=== PATIENT | female | born 1950 | race Caucasian/White ===

== ENCOUNTER 2019-07-16 14:03 | Outpatient (CLI) | payer MEDICARE, OTHER ==
--- NOTE | 2019-07-16 15:07 | BD ---
DEXA BONE DENSITY STUDY: Date: 07/16/19 HISTORY: 69-year-old postmenopausal female for screening for osteoporosis. FINDINGS: Lumbar Spine: BMD (g/cm2) L1 1.059 T-Score: 0.6 L2 1.091 T-Score: 0.6 L3 1.071 T-Score: -0.1 L4 1.263 T-Score: 1.8 L1-L4 1.126 T-Score: 0.7 Femoral Neck: 0.666 T-Score: -1.7 Total Femur: 0.852 T-Score: -0.7 IMPRESSION: Osteopenia. This patient has a 10 year WHO fracture risk for a major osteoporotic fracture of 16% and for a hip fracture of 3.3%. POS: [facility]
== END 2019-07-16 14:04 | disposition home or self-care (01) ==
LOC: BICMAMMO 14:03
PROVIDERS: ATTEND Family Medicine
DX: Z13.820 Encounter for screening for osteoporosis (principal); M85.859 Other specified disorders of bone density and structure, unspecified thigh; Z78.0 Asymptomatic menopausal state
CPT/HCPCS: 77080

== ENCOUNTER 2019-08-27 13:01 | Outpatient (CLI) | payer MEDICARE, OTHER | END 2019-08-27 13:02 | disposition home or self-care (01) | LOC: ULT 13:01 | PROVIDERS: ATTEND Family Medicine | DX: R01.1 Cardiac murmur, unspecified (principal) | CPT/HCPCS: 93306 ==

== ENCOUNTER 2021-01-26 13:29 | Outpatient (CLI) | payer MEDICARE, OTHER | END 2021-01-26 13:30 | disposition home or self-care (01) | LOC: BICRAD 13:29 | PROVIDERS: ATTEND Physician Assistant | DX: R06.02 Shortness of breath (principal); E03.9 Hypothyroidism, unspecified; R68.89 Other general symptoms and signs | CPT/HCPCS: 36415; 71046; 80053; 83880; 84439; 84443; 84481; 85025 ==

== ENCOUNTER 2021-02-25 09:05 | Outpatient (CLI) | payer MEDICARE, OTHER ==
[2021-02-25] MEDS ORDERED: Iopamidol-370 76% 500 ML 1 ML ONE (11:49)
== END 2021-02-25 09:06 | disposition home or self-care (01) ==
LOC: BICCT 09:05
PROVIDERS: ATTEND Internal Medicine
DX: K63.9 Disease of intestine, unspecified (principal); K76.0 Fatty (change of) liver, not elsewhere classified; K57.30 Diverticulosis of large intestine without perforation or abscess without bleeding; C78.01 Secondary malignant neoplasm of right lung; C78.7 Secondary malignant neoplasm of liver and intrahepatic bile duct; R91.8 Other nonspecific abnormal finding of lung field
CPT/HCPCS: 71260; 74177; Q9967

== ENCOUNTER 2021-03-03 14:54 | Outpatient (CLI) | payer MEDICARE, OTHER ==
[2021-03-03 16:08] LABS: Anion Gap 15 mmol/L (10-20); BUN (Urea Nitrogen) 13 mg/dL (9.8-20.1); Calc. Creatinine Clearance 0 mL/min (70-130); Calcium 9.6 mg/dL (7.8-10.44); Carbon Dioxide 25 mmol/L (23-31); Chloride 103 mmol/L (98-107); Glucose 131 mg/dL (83-110); Potassium 4.4 mmol/L (3.5-5.1); Sodium 139 mmol/L (136-145)
[2021-03-03 16:43] LABS: #Basophils 0.1 10x3/uL (0.0-0.2); #Eosinphils 0.2 10x3/uL (0.0-0.5); #Monocytes 0.5 10x3/uL (0.0-1.1); #Neutrophils 5.1 10x3/uL (1.5-8.4); %Basophils 1.3 % (0.0-2.0); %Eosinophils 2.5 % (0.0-6.0); %Lymphocytes 15.9 % (18.0-47.0); %Monocytes 6.7 % (0.0-10.0); %Neutrophils 73.3 % (40.0-75.0); Hemoglobin 8.9 g/dL (12.0-15.5); Mean Corpuscular HGB CONC 29.5 g/dL (32.0-36.0); Mean Corpuscular Hemoglobin 22.7 pg (27.0-33.0); Mean Platelet Volume 9.5 fl (7.4-10.4); Platelet Count 533 10x3/uL (150-450); RBC Distribution Width 15.6 % (11.5-14.5); Red Blood Cell (RBC) Count 3.92 10x6/uL (3.90-5.03); White Blood Cell (WBC) Count 6.9 10x3/uL (3.5-10.5)
[2021-03-03 18:21] LABS: Hypochromia MODERATE=16-30 cells (100X) (0-5/hpf)
[2021-03-03 18:22] LABS: Microcytosis SLIGHT = 6-15 cells (100X) (0-5/hpf)
[2021-03-03 18:23] LABS: Platelet Morphology Comment Appears Increased
[2021-03-04 01:47] LABS: SARS-CoV-2 PCR by NAA Not Detected (NotDetected)
== END 2021-03-03 14:55 | disposition home or self-care (01) ==
LOC: LABBT 14:54
PROVIDERS: ATTEND Specialist
DX: Z01.818 Encounter for other preprocedural examination (principal); C18.2 Malignant neoplasm of ascending colon; Z20.822 Contact with and (suspected) exposure to COVID-19
CPT/HCPCS: 80048; 85025; 93005; U0003; U0005; 87635; 93010

== ENCOUNTER 2021-03-04 10:29 | Day surgery (SDC) | payer MEDICARE, OTHER ==
[2021-03-03 13:15] VITALS: BMI 29.8
[2021-03-04] MEDS ORDERED: Ketorolac Tromethamine 30 MG/ML VIAL ONE (11:22)
[2021-03-04] MEDS ORDERED: Acetaminophen 500 MG TAB ONE (11:22)
[2021-03-04] MEDS ORDERED: EPINEPHrine 1 MG/ML AMP ONE (12:04)
[2021-03-04] MEDS ORDERED: Heparin 10,000 UNITS/ 10 ML VIAL ONE (12:04)
[2021-03-04] MEDS ORDERED: Bupivacaine 0.25% HCL 30 ML VIAL ONE (12:04)
[2021-03-04] MEDS ORDERED: Lidocaine 1% (PF) 30 ML VIAL ONE (12:04)
[2021-03-04] MEDS ORDERED: Midazolam HCl 2 mg/2 ml Vial ONE (12:16)
[2021-03-04] MEDS ORDERED: Propofol 1,000 MG/100 ML VIAL IV ONE (12:16)
[2021-03-04] MEDS ORDERED: Fentanyl 100 MCG/2 ML VIAL ONE (12:16)
[2021-03-04] MEDS ORDERED: Lidocaine 1% PF 5 ML VIAL ONE (13:28)
== END 2021-03-04 15:35 | disposition home or self-care (01) ==
LOC: SDC 10:29
PROVIDERS: ATTEND Specialist
PROC: 0JH60WZ Insertion of Totally Implantable Vascular Access Device into Chest Subcutaneous Tissue and Fascia, Open Approach (ICD-10-PCS; principal; 2021-03-04)
PROC: 02HV33Z Insertion of Infusion Device into Superior Vena Cava, Percutaneous Approach (ICD-10-PCS; 2021-03-04)
DX: C18.2 Malignant neoplasm of ascending colon (principal); C78.01 Secondary malignant neoplasm of right lung; C78.7 Secondary malignant neoplasm of liver and intrahepatic bile duct; D63.0 Anemia in neoplastic disease; E78.5 Hyperlipidemia, unspecified; E03.9 Hypothyroidism, unspecified; Z79.899 Other long term (current) drug therapy; Z88.1 Allergy status to other antibiotic agents; Z88.2 Allergy status to sulfonamides
CPT/HCPCS: 36561; 71045; C1788; J0171; J0690; J1642; J1644; J1885; J2001; J2250; J2704; J3010; S0020

== ENCOUNTER 2021-03-10 07:34 | Outpatient (CLI) | payer MEDICARE, OTHER | END 2021-03-10 07:35 | disposition home or self-care (01) | LOC: PET 07:34 | PROVIDERS: ATTEND Internal Medicine Medical Oncology | DX: C18.9 Malignant neoplasm of colon, unspecified (principal); C78.7 Secondary malignant neoplasm of liver and intrahepatic bile duct; C78.00 Secondary malignant neoplasm of unspecified lung | CPT/HCPCS: 78815; A9552 ==

== ENCOUNTER 2021-09-06 07:32 | Outpatient (CLI) | payer MEDICARE, OTHER | END 2021-09-06 07:33 | disposition home or self-care (01) | LOC: PET 07:32 | PROVIDERS: ATTEND Internal Medicine Medical Oncology | DX: C18.2 Malignant neoplasm of ascending colon (principal) | CPT/HCPCS: 78815; A9552 ==

== ENCOUNTER 2022-02-28 08:00 | Outpatient (CLI) | payer MEDICARE, OTHER | END 2022-02-28 08:01 | disposition home or self-care (01) | LOC: PET 08:00 | PROVIDERS: ATTEND Internal Medicine Medical Oncology | DX: C18.2 Malignant neoplasm of ascending colon (principal); C78.00 Secondary malignant neoplasm of unspecified lung; C78.7 Secondary malignant neoplasm of liver and intrahepatic bile duct | CPT/HCPCS: 78815; A9552 ==

== ENCOUNTER 2022-07-14 08:00 | Outpatient (CLI) | payer MEDICARE, OTHER | END 2022-07-14 08:01 | disposition home or self-care (01) | LOC: PET 08:00 | PROVIDERS: ATTEND Internal Medicine Medical Oncology | DX: C18.2 Malignant neoplasm of ascending colon (principal); D50.8 Other iron deficiency anemias; C78.00 Secondary malignant neoplasm of unspecified lung; C22.9 Malignant neoplasm of liver, not specified as primary or secondary | CPT/HCPCS: 78815; A9552 ==

== ENCOUNTER 2022-12-01 11:00 | Outpatient (CLI) | payer MEDICARE, OTHER | END 2022-12-01 11:01 | disposition home or self-care (01) | LOC: PET 11:00 | PROVIDERS: ATTEND Internal Medicine Medical Oncology | DX: C18.2 Malignant neoplasm of ascending colon (principal); K76.9 Liver disease, unspecified | CPT/HCPCS: 78815; A9552 ==

== ENCOUNTER 2022-12-18 11:38 | Outpatient (CLI) | payer MEDICARE, OTHER ==
[~2022-12-18 11:38] MED LIST: Iopamidol 370 76% 100 ML VIAL ONE
== END 2022-12-18 11:39 | disposition home or self-care (01) ==
LOC: CT 11:38
PROVIDERS: ATTEND Internal Medicine Medical Oncology
DX: C78.7 Secondary malignant neoplasm of liver and intrahepatic bile duct (principal); C78.00 Secondary malignant neoplasm of unspecified lung; C18.2 Malignant neoplasm of ascending colon; N28.9 Disorder of kidney and ureter, unspecified; K76.9 Liver disease, unspecified; D50.8 Other iron deficiency anemias
CPT/HCPCS: 71260; 74178; Q9967

== ENCOUNTER 2023-06-21 12:43 | Outpatient (CLI) | payer MEDICARE, OTHER | END 2023-06-21 12:44 | disposition home or self-care (01) | LOC: BICCT 12:43 | PROVIDERS: ATTEND Internal Medicine Medical Oncology | DX: C18.2 Malignant neoplasm of ascending colon (principal); C22.9 Malignant neoplasm of liver, not specified as primary or secondary; R59.0 Localized enlarged lymph nodes; R91.1 Solitary pulmonary nodule; Z90.49 Acquired absence of other specified parts of digestive tract | CPT/HCPCS: 71260; 74177 ==

== ENCOUNTER 2023-09-12 12:31 | Outpatient (CLI) | payer MEDICARE, OTHER | END 2023-09-12 12:32 | disposition home or self-care (01) | LOC: BICCT 12:31 | PROVIDERS: ATTEND Internal Medicine | DX: C18.2 Malignant neoplasm of ascending colon (principal); C78.00 Secondary malignant neoplasm of unspecified lung; C22.9 Malignant neoplasm of liver, not specified as primary or secondary; K76.0 Fatty (change of) liver, not elsewhere classified; Z90.49 Acquired absence of other specified parts of digestive tract | CPT/HCPCS: 71260; 74177 ==

== ENCOUNTER 2023-12-19 09:27 | Outpatient (CLI) | payer MEDICARE, OTHER | END 2023-12-19 09:28 | disposition home or self-care (01) | LOC: BICCT 09:27 | PROVIDERS: ATTEND Internal Medicine | DX: C18.9 Malignant neoplasm of colon, unspecified (principal); R91.8 Other nonspecific abnormal finding of lung field; K76.9 Liver disease, unspecified | CPT/HCPCS: 71260; 74177 ==

== ENCOUNTER 2024-05-09 08:56 | Outpatient (CLI) | payer MEDICARE, OTHER ==
[2024-05-09] MEDS ORDERED: Iopamidol 370 76% 100 ML VIAL ONE (15:45)
== END 2024-05-09 08:57 | disposition home or self-care (01) ==
LOC: BICCT 08:56
PROVIDERS: ATTEND Internal Medicine
DX: C18.9 Malignant neoplasm of colon, unspecified (principal); K76.9 Liver disease, unspecified; J98.59 Other diseases of mediastinum, not elsewhere classified; Z95.9 Presence of cardiac and vascular implant and graft, unspecified
CPT/HCPCS: 71260; 74177; Q9967

== ENCOUNTER 2024-09-02 08:48 | Outpatient (CLI) | payer MEDICARE, OTHER ==
[2024-09-02] MEDS ORDERED: Iopamidol 370 76% 100 ML VIAL ONE (11:41)
== END 2024-09-02 08:49 | disposition home or self-care (01) ==
LOC: CT 08:48
PROVIDERS: ATTEND Internal Medicine
DX: C18.2 Malignant neoplasm of ascending colon (principal); K76.9 Liver disease, unspecified; R91.1 Solitary pulmonary nodule; J98.59 Other diseases of mediastinum, not elsewhere classified
CPT/HCPCS: 71260; 74177

== ENCOUNTER 2024-11-17 08:13 | Outpatient (CLI) | payer MEDICARE, OTHER ==
[2024-11-17] MEDS ORDERED: Iopamidol 370 76% 100 ML VIAL ONE (09:07)
== END 2024-11-17 08:14 | disposition home or self-care (01) ==
LOC: BICCT 08:13
PROVIDERS: ATTEND Internal Medicine
DX: C18.2 Malignant neoplasm of ascending colon (principal); D50.8 Other iron deficiency anemias; C78.7 Secondary malignant neoplasm of liver and intrahepatic bile duct; R91.1 Solitary pulmonary nodule; J98.59 Other diseases of mediastinum, not elsewhere classified
CPT/HCPCS: 71260; 74177

== ENCOUNTER 2025-05-19 08:30 | Outpatient (CLI) | payer MEDICARE, OTHER ==
[2025-05-19] MEDS ORDERED: Iopamidol 370 76% 100 ML VIAL ONE (11:19)
== END 2025-05-19 08:31 | disposition home or self-care (01) ==
LOC: CT 08:30
PROVIDERS: ATTEND Internal Medicine
DX: C18.2 Malignant neoplasm of ascending colon (principal); D50.8 Other iron deficiency anemias; K76.9 Liver disease, unspecified; I25.10 Atherosclerotic heart disease of native coronary artery without angina pectoris; K57.30 Diverticulosis of large intestine without perforation or abscess without bleeding; M47.819 Spondylosis without myelopathy or radiculopathy, site unspecified; R91.1 Solitary pulmonary nodule; R59.0 Localized enlarged lymph nodes; M43.8X5 Other specified deforming dorsopathies, thoracolumbar region; Z90.49 Acquired absence of other specified parts of digestive tract; Z98.890 Other specified postprocedural states
CPT/HCPCS: 71260; 74177; Q9967